=== PATIENT | female | born 1955 | race Caucasian/White ===

== ENCOUNTER → 2020-05-20 10:38 | Outpatient (CLI) | payer MEDICARE, BC ==
[~2020-05-20 10:38] MED LIST: BAYER CHEWABLE81 MG PO; CALCIUM 250+D T1 TAB PO; COZAAR25 MG PO; FIBER PILL; LISINOPRIL2.5 MG; STATIN; VOLTAREN25 MG
[2020-05-22 10:43] VITALS: BMI 28.3
== END | disposition home or self-care (01) ==
LOC: D.LAB 10:38
PROVIDERS: ATTEND Podiatrist
DX: Z11.59 Encounter for screening for other viral diseases (principal)

== ENCOUNTER 2020-05-22 09:26 | Day surgery (SDC) | payer MEDICARE, BC ==
[~2020-05-22] VITALS: Ht 165.1 cm; Wt 77.1 kg
--- NOTE | ~2020-05-22 | OP ---
PATIENT NAME: REFUGIO CALLAHAN MEDICAL RECORD: [id number] :51 [facility] DATE: SURGEON: JONE LEES DATE OF OPERATION: 05/22/2020 SURGEON: Jone Lees DPM PREOPERATIVE DIAGNOSIS: Dorsal exostosis, left foot. POSTOPERATIVE DIAGNOSIS: Dorsal exostosis, left foot. PROCEDURE: Excision of exostosis, left foot. ANESTHESIA: Local with monitored anesthesia care. HEMOSTASIS: Pneumatic ankle tourniquet inflated to 250 mmHg. ESTIMATED BLOOD LOSS: Minimal. MATERIALS: 3-0 Vicryl, 4-0 nylon. INJECTABLES: 20 cc of 0.5% bupivacaine plain. The patient has longstanding history of pain associated with the dorsal exostosis on the left foot. She has tried wider roomier shoes to no avail. She is here today for surgical correction. We again reviewed the risks and benefits of the procedure. Complications were discussed. All questions were answered. She was appropriately consented for the above-mentioned procedure. DESCRIPTION OF PROCEDURE: The patient was brought to the operating room and placed on the operating table in supine position. A timeout was called with Dr. Lees, who identified the patient, the surgical site, and surgery to be performed. Once appropriate anesthesia was obtained, the foot was prepped and draped in the usual aseptic manner. The Pneumatic ankle tourniquet inflated to 250 mmHg on the well-padded left ankle. Attention was directed to the dorsal aspect of the left foot where an exostosis was identified at the first metatarsal medial cuneiform joint area. A 3-cm linear incision was made directly over the exostosis. This incision was carried deep to soft tissue with care being taken to retract all vital neurovascular structures. All bleeders were cauterized along the way. Periosteum was then reflected from the joint and the dorsal exostosis was observed. Utilizing combination of osteotome, mallet, rasp and rongeur, all hypertrophied bone was removed. The surgical site was then inspected for any remaining rough sharp bony projections and none were noted. The surgical site was then irrigated with copious amounts of normal sterile saline via bulb syringe. The periosteum was reapproximated and coapted using 3-0 Vicryl. The subQ was then reapproximated and coapted using 3-0 Vicryl and the skin was reapproximated and closed using 4-0 nylon. A dressing consisting of Xeroform, 4 x 4's, Kerlix, and an Tutu bandage was applied to the left foot. The pneumatic ankle tourniquet was deflated and cap refill time was immediate to all digits of the left foot. The patient tolerated the procedure and anesthesia well. She left the operating room with vital signs stable and capillary refill time intact. OPERATIVE REPORT [id number] REFUGIO CALLAHAN The patient was discharged home with instructions to ice and elevate left foot. She has a postop shoe to further help offload the foot. She was provided with my cell phone number for any after hours difficulties and will follow up with her in 1 week. TRANSINT:[id number] Voice Confirmation ID: [id number] DOCUMENT ID: [id number] JONE LEES CC: [id number] DICTATION DATE: 05/22/20 1441 [employer] DEVELOPER: 05/23/20 0048 [facility] 05/22/[address] [id number]
[~2020-05-22 09:26] MED LIST changes: -CALCIUM 250+D T1 TAB PO; -COZAAR25 MG PO; -FIBER PILL; -LISINOPRIL2.5 MG; -STATIN; -VOLTAREN25 MG
[2020-05-22 09:37] LABS: HEMATOCRIT 44.2 % (36.0-48.0); HEMOGLOBIN 14.3 g/dL (12-16); MCH 30.8 pg (26.0-34.0); MCHC 32.4 g/dL (31.0-37.0); MCV 95.1 fL (80.0-100.0); RBC 4.65 10x6/uL (4.00-5.40); RDW 12.6 % (11.5-14.5); WBC 6.2 10x3/uL (4.8-10.8)
[2020-05-22 09:44] LABS: CALC OSMOLALITY 284 mosm/kg (275-300); CALCIUM 9.3 mg/dL (8.5-10.1); CARBON DIOXIDE 32.4 mmol/L (21.0-32.0); CHLORIDE - SERUM 105 mmol/L (98-107); CREATININE - SERUM 0.8 mg/dL (0.6-1.3); GLUCOSE 97 mg/dL (74-106); SODIUM 142 mmol/L (136-145); UREA NITROGEN 17 mg/dL (7-18); eGFR NON AFRICAN AMERICAN 76 mL/min (90-120)
[2020-05-22] MEDS ORDERED: VOLTAREN25 MG (10:22)
[2020-05-22] MEDS ORDERED: LISINOPRIL2.5 MG (10:23)
[2020-05-22] MEDS ORDERED: COZAAR25 MG PO (10:24)
[2020-05-22] MEDS ORDERED: STATIN (10:24)
[2020-05-22] MEDS ORDERED: CALCIUM 250+D T1 TAB PO (10:25)
[2020-05-22] MEDS ORDERED: FIBER PILL (10:25)
[2020-05-22 10:43] VITALS: BP 127/76; Ht 165.1 cm; Wt 77.1 kg
== END 2020-05-22 13:55 | disposition home or self-care (01) ==
LOC: D.OPS 09:26 → D.PAN 12:00 → D.OPS 13:55
PROVIDERS: Anesthesiology; ATTEND Podiatrist
DX: M89.9 Disorder of bone, unspecified (principal); M19.072 Primary osteoarthritis, left ankle and foot; M25.775 Osteophyte, left foot